=== PATIENT | male | born 1940 | race Caucasian/White ===

== ENCOUNTER 2017-02-21 21:54 | Observation (INO) | payer MEDICARE, OTHER ==
[~2017-02-21] VITALS: Ht 177.8 cm; Wt 105.5 kg
[~2017-02-21 21:54] MED LIST: ASPI325T PO; FENO1TAB76 PO; LOSA50TA PO; METO25 PO; MOBI7.5T PO; NEUR300C PO; NITR0.4S SL; ROSU10 PO
[2017-02-21 21:55] VITALS: BP 208/92; PULSE 82; RESP 16; TEMP 98.6; O2SAT 95
[2017-02-21] MEDS ORDERED: NITROGLYCERIN 2% OINT 1 GM PACKET TOP ONE ×2 (22:30→23:00)
[2017-02-21] MEDS ORDERED: MORPHINE SULFATE 2 MG/ML INJ IV PUSH ONE (22:30)
--- NOTE | 2017-02-21 22:32 | PD ---
HPI Chief Complaint: Chest Pain Time Seen by Provider: 22:09 Travel History International Travel<30 days: No Contact w/Intl Traveler<30days: No Traveled to known affect area: No History of Present Illness HPI PATIENT COMPLAINTS OF CHEST TIGHTNESS, 6/10 NOW (WAS MUCH HIGHER 9/10 BEFORE HE TOOK NTG) INTERMITTENT OVER PAST 3 DAYS, SUBSTERNAL, RAD TO NECK, EPISODES LAST 30MIN OR SO AND ARE RELIEVED WITH NTG, PATIENT HAS BEEN USING HIS SL NTG OVER THE PAST 3 DAYS AND WAS ADVISED BY HIS FAMILY TO COME IN FOR FURTHER EVALUATION. PCP IN [facility], [facility] IN [address] SEARS ALL:PCN PMHX:TX 8 YRS AGO, 3 PREVIOUS STENTS, HTN, HYPERCHOL, COPD, PFSH Past Medical History Arthritis: Yes Heart Rhythm Problems: Yes Cardiac Catheterization: Yes (CATH X 2) Cardiovascular Problems: Yes High Cholesterol: Yes Chest Pain: Yes COPD: Yes Diminished Hearing: Yes (LEFT HEARING AID ) Hypertension: Yes Medical other: Yes (EARDRUM ) Musculoskeletal: Yes (ACHILLES TENDON ) Myocardial Infarction: Yes (TX 8 YEARS AGO ) Past Surgical History Cardiac Surgery: Yes Coronary Stent: Yes (STENTS X 3) Social History Alcohol Use: Yes (OCC) Tobacco Use: No (HX OF 1 PPD) Substance Use: No Allergies-Medications (Allergen,Severity, Reaction): Coded Allergies: penicillin G (Unverified Allergy, Unknown, 02/21/17) Reported Meds & Prescriptions Reported Meds & Active Scripts Active Reported Prednisone 20 Mg Tab 40 Mg PO DAILY Take 40 mg (2 tablets) daily for 5 days Hydrocortisone Topical (Hydrocortisone) 0.5% Oint 1 Applic TOPICAL QID Gmcagows-Hvjdgyqzm-BE Otic Drops (Neomycin/Polymyxin/Hydrocortisone) 1 % Soln 4 Drop EACH EAR QID Doxycycline Hyclate 100 Mg Cap 100 Mg PO BID Aspirin 325 Mg Tab 325 Mg PO DAILY Fenofibrate 145 Mg Tab 145 Mg PO DAILY Metoprolol Tartrate 50 Mg Tab 50 Mg PO BID Potassium Chloride ER (Potassium Chloride) 10 Meq Tab 10 Meq PO BID Losartan (Losartan Potassium) 50 Mg Tab 50 Mg PO DAILY Furosemide 20 Mg Tab 20 Mg PO BID Rosuvastatin (Rosuvastatin Calcium) 5 Mg Tab 5 Mg PO DAILY Review of Systems General / Constitutional: No: Fever Eyes: No: Visual changes HENT: No: Headaches Cardiovascular: Positive: Chest Pain or Discomfort Respiratory: No: Shortness of Breath Gastrointestinal: No: Abdominal Pain Genitourinary: No: Dysuria Musculoskeletal: No: Pain Skin: No Rash Neurologic: No: Weakness Psychiatric: No: Depression Endocrine: No: Polydipsia Hematologic/Lymphatic: No: Easy Bruising Physical Exam Narrative GENERAL: SKIN: Warm and dry. HEAD: Atraumatic. Normocephalic. EYES: Pupils equal and round. No scleral icterus. No injection or drainage. ENT: No nasal bleeding or discharge. Mucous membranes pink and moist. NECK: Trachea midline. No JVD. CARDIOVASCULAR: Regular rate and rhythm. RESPIRATORY: No accessory muscle use. Clear to auscultation. Breath sounds equal bilaterally. GASTROINTESTINAL: Abdomen soft, non-tender, nondistended. MUSCULOSKELETAL: Extremities without clubbing, cyanosis, or edema. No obvious deformities. NEUROLOGICAL: Awake and alert. No obvious cranial nerve deficits. Motor grossly within normal limits. Five out of 5 muscle strength in the arms and legs. Normal speech. PSYCHIATRIC: Appropriate mood and affect; insight and judgment normal. Data Data Last Documented VS Vital Signs Date Time Temp Pulse Resp B/P (MAP) Pulse Ox O2 Delivery O2 Flow Rate FiO2 02/21/17 23:09 99 Nasal Cannula 2.00 02/21/17 22:33 69 02/21/17 21:55 98.6 16 208/92 (130) Orders Orders Nitroglycerin 2% Oint (Nitroglycerin 2% (02/21/17 22:30) Morphine Inj (Morphine Inj) (02/21/17 22:30) Electrocardiogram (02/21/17 23:00) B-Type Natriuretic Peptide (02/21/17 23:00) Ckmb (Isoenzyme) Profile (02/21/17 23:00) Complete Blood Count With Diff (02/21/17 23:00) Comprehensive Metabolic Panel (02/21/17 23:00) Prothrombin Time / Inr (Pt) (02/21/17 23:00) Act Partial Throm Time (Ptt) (02/21/17 23:00) Troponin I (02/21/17 23:00) Lipase (02/21/17 23:00) Chest, Single Ap (02/21/17 23:00) Ecg Monitoring (02/21/17 23:00) Bilateral Bp Monitoring (02/21/17 23:00) Iv Access Insert/Monitor (02/21/17 23:00) Oximetry (02/21/17 23:00) Oxygen Administration (02/21/17 23:00) Nitroglycerin 2% Oint (Nitroglycerin 2% (02/21/17 23:00) Sodium Chloride 0.9% Flush (Ns Flush) (02/21/17 23:00) Labs Laboratory Tests Test 02/21/17 23:05 White Blood Count 11.4 TH/MM3 Red Blood Count 4.80 MIL/MM3 Hemoglobin 13.3 GM/DL Hematocrit 41.3 % Mean Corpuscular Volume 86.0 FL Mean Corpuscular Hemoglobin 27.6 PG Mean Corpuscular Hemoglobin Concent 32.1 % Red Cell Distribution Width 16.1 % Platelet Count 184 TH/MM3 Mean Platelet Volume 9.5 FL Neutrophils (%) (Auto) 75.4 % Lymphocytes (%) (Auto) 16.5 % Monocytes (%) (Auto) 7.3 % Eosinophils (%) (Auto) 0.1 % Basophils (%) (Auto) 0.7 % Neutrophils # (Auto) 8.6 TH/MM3 Lymphocytes # (Auto) 1.9 TH/MM3 Monocytes # (Auto) 0.8 TH/MM3 Eosinophils # (Auto) 0.0 TH/MM3 Basophils # (Auto) 0.1 TH/MM3 CBC Comment DIFF FINAL Differential Comment Prothrombin Time 10.6 SEC Prothromb Time International Ratio 1.0 RATIO Activated Partial Thromboplast Time 22.4 SEC Blood Urea Nitrogen 29 MG/DL Creatinine 1.12 MG/DL Random Glucose 122 MG/DL Total Protein 6.9 GM/DL Albumin 3.9 GM/DL Calcium Level 9.0 MG/DL Alkaline Phosphatase 59 U/L Aspartate Amino Transf (AST/SGOT) 15 U/L Alanine Aminotransferase (ALT/SGPT) 31 U/L Total Bilirubin 0.3 MG/DL Sodium Level 142 MEQ/L Potassium Level 4.6 MEQ/L Chloride Level 109 MEQ/L Carbon Dioxide Level 28.6 MEQ/L Anion Gap 4 MEQ/L Estimat Glomerular Filtration Rate 64 ML/MIN Total Creatine Kinase 50 U/L Troponin I LESS THAN 0.02 NG/ML B-Type Natriuretic Peptide 37 PG/ML Lipase 108 U/L MDM Medical Decision Making Medical Screen Exam Complete: Yes Emergency Medical Condition: Yes Medical Record Reviewed: Yes Interpretation(s) EKG:NSR 68, INCOMPLETE RSR, NO STEMI PATTERN Differential Diagnosis STEMI V NONSTEMI V PNA V PTX Narrative Course EKG NO STEMI PATTERN, HOWEVER PATIENT HAS RISK FACTORS OF PREVIOUS NONSTEMI, HTN , HYPERLIPIDEMIA WELL SO I BELIEVE IT PRUDENT TO R/O NONSTEMI...CURRENTLY AT 0100 PATIENT IS PAIN FREE, COMFORTABLE AND AWARE OF DISPO PLAN Diagnosis Primary Impression: CHEST PAIN R/O TX Phil Pickens MD Feb 21, 2017 22:31
[2017-02-21] MEDS ORDERED: METO50TA PO (22:58)
[2017-02-21] MEDS ORDERED: FENO145T2 PO (22:58)
[2017-02-21] MEDS ORDERED: CORTI10A EACH EAR (22:58)
[2017-02-21] MEDS ORDERED: PRED20 PO (22:58)
[2017-02-21] MEDS ORDERED: FURO20TA PO (22:58)
[2017-02-21] MEDS ORDERED: POTA10TA2 PO (22:58)
[2017-02-21] MEDS ORDERED: LOSA50TA PO (22:58)
[2017-02-21] MEDS ORDERED: HYDR.5%T TOPICAL (22:58)
[2017-02-21] MEDS ORDERED: ASPI-183 PO (22:58)
[2017-02-21] MEDS ORDERED: DOXY100C PO (22:58)
[2017-02-21] MEDS ORDERED: ROSU1TAB4 PO (22:58)
[2017-02-21] MEDS ORDERED: SODIUM CHLORIDE 0.9% FLUSH 10 ML FLUSH IVF PRN (23:00)
--- NOTE | 2017-02-21 23:33 | RADRPT ---
EXAM DATE/TIME: 02/21/2017 23:24 [facility] COMPARISON: CHEST PA & LAT, December 24, 2014, 16:51. INDICATIONS : Upper chest lower anterior neck pain. MEDICAL HISTORY : Myocardial infarction. Chronic obstructive pulmonary disease. SURGICAL HISTORY : None. ENCOUNTER: Initial ACUITY: 1 day PAIN SCORE: 3/10 LOCATION: Bilateral chest neck FINDINGS: A single view of the chest demonstrates the lungs to be symmetrically aerated without evidence of mas s, infiltrate or effusion. The cardiomediastinal contours are unremarkable. Osseous structures are intact. CONCLUSION: No evidence of acute cardiopulmonary disease. Jaziel Pennington MD on February 21, 2017 at 23:32 Board Certified Radiologist. This report was verified electronically.
[2017-02-21 23:43] LABS: AUTOMATED NEUTROPHIL # 8.6 TH/MM3 (1.8-7.7); BASOPHIL # 0.1 TH/MM3 (0-0.2); BASOPHIL % 0.7 % (0.0-2.0); EOSINOPHIL % 0.1 % (0.0-4.0); HEMATOCRIT 41.3 % (39.0-51.0); HEMO FLAGS DIFF FINAL; LYMPH % 16.5 % (9.0-44.0); LYMPHOCYTE # 1.9 TH/MM3 (1.0-4.8); MEAN CORPUSCULAR HEMOGLOBIN 27.6 PG (27.0-34.0); MEAN CORPUSCULAR HGB CONC 32.1 % (32.0-36.0); MONO % 7.3 % (0.0-8.0); NEUT % 75.4 % (16.0-70.0); PLATELET COUNT 184 TH/MM3 (150-450); RED CELL DISTRIBUTION WIDTH 16.1 % (11.6-17.2); WHITE BLOOD COUNT 11.4 TH/MM3 (4.0-11.0)
[2017-02-21 23:56] LABS: APTT (PATIENT) 22.4 SEC (24.3-30.1); PROTHROMBIN TIME - PATIENT 10.6 SEC (9.8-11.6)
[2017-02-22 00:06] LABS: ANION GAP 4 MEQ/L (5-15); AST (GOT) 15 U/L (15-37); BICARBONATE 28.6 MEQ/L (21.0-32.0); BLOOD UREA NITROGEN 29 MG/DL (7-18); CHLORIDE 109 MEQ/L (98-107); GLOMERULAR FILTRATION RATE 64 ML/MIN (>89); POTASSIUM 4.6 MEQ/L (3.5-5.1); SODIUM (NA) 142 MEQ/L (136-145)
[2017-02-22 00:11] LABS: ALKALINE PHOSPHATASE 59 U/L (45-117); ALT (GPT) 31 U/L (12-78); TOTAL BILIRUBIN ADULT 0.3 MG/DL (0.2-1.0)
[2017-02-22 00:14] LABS: CREATINE KINASE 50 U/L (39-308)
[2017-02-22] MEDS ORDERED: SODIUM CHLORIDE 0.9% FLUSH 10 ML FLUSH IV FLUSH PRN (01:15)
[2017-02-22 01:50] VITALS: O2SAT 98
[2017-02-22 03:30] LABS: CREATINE KINASE 38 U/L (39-308)
[2017-02-22 04:16] VITALS: BP 159/73; PULSE 62; RESP 24; TEMP 97.7; O2SAT 98
[2017-02-22 05:00] LABS: CREATINE KINASE 37 U/L (39-308)
[2017-02-22 08:00] VITALS: BP 146/75; PULSE 63; RESP 20; TEMP 98.2; O2SAT 96
[2017-02-22] MEDS ORDERED: NITROGLYCERIN 0.4 MG SL 25 TABS/BTL SL PRN (08:00)
[2017-02-22] MEDS ORDERED: ACETAMINOPHEN 500 MG CPLT PO PRN (08:00)
[2017-02-22] MEDS ORDERED: ONDANSETRON HCL 4 MG/2 ML VIAL IV PUSH PRN (08:00)
[2017-02-22 08:15] VITALS: PULSE 61
[2017-02-22] MEDS ORDERED: SODIUM CHLORIDE 0.9% FLUSH 10 ML FLUSH IV FLUSH SCH (09:00)
[2017-02-22] MEDS ORDERED: ASPIRIN 325 MG TAB PO SCH (09:00)
--- NOTE | 2017-02-22 09:22 | HHI.HP ---
HPI Primary Care Physician PCP in [place], [place] Chief Complaint Chest pain History of Present Illness 76-year-old male with known history of coronary artery disease, hyperlipidemia, and cardiac stents presents to emergency room for further evaluation of his "angina pain." Onset 2 days ago. Location anterior neck. Characterized as tightness. Severity mild. No radiation. Duration 30-60 minutes. Associated symptoms of dyspnea. No associated symptoms of N, V, or diaphoresis. Precipitating factors activity, reporting 5 episodes past 2 days. Relieving factors rest, discomfort gradually improves after 30-60 minutes. Endorses similar pain in the past prior to previously cardiac stent placement. Took x1 nitro sublingual tablet yesterday with mild relief of symptoms after 15 minutes. Endorses nitro is an old prescription. Also reports discomfort similar to ingestion generally relieved with Tums. Took Tums during these discomfort without relief. Review of Systems General: No fatigue,weakness, fever, chills, or recent illness change in appetite. HEENT: No ZARCO, no vision changes, no nasal congestion or drainage, no dysphasia. Currently being treated for perforated ear drum with antibiotics, steroids, and ear drops. CV: As stated above. Currently chest pain free. RESP: No SOB, cough, wheeze GI: No nausea, vomiting, bowel changes, diarrhea, constipation, pain, distention. No change in appetite, no unintentional weight gain or weight loss. : No dysuria, urgency, frequency EXT: Dependent bilateral lower leg edema MS: No discomfort or change in ROM NEURO: No dizziness, difficulty with balance, LOC, motor/sensory deficits PSYCH: No anxiety, depression SKIN: No rashes, no concerning lesions Past Family Social History Allergies: Coded Allergies: penicillin G (Unverified Allergy, Unknown, 02/21/17) Past Medical History CAD, cardiac stent, hyperlipidemia, COPD Past Surgical History c5-c6 fusion Reported Medications Reported Meds & Active Scripts Active Reported Prednisone 20 Mg Tab 40 Mg PO DAILY Take 40 mg (2 tablets) daily for 5 days Hydrocortisone Topical (Hydrocortisone) 0.5% Oint 1 Applic TOPICAL QID Capsxhmz-Gnunvtytx-RC Otic Drops (Neomycin/Polymyxin/Hydrocortisone) 1 % Soln 4 Drop EACH EAR QID Doxycycline Hyclate 100 Mg Cap 100 Mg PO BID Aspirin 325 Mg Tab 325 Mg PO DAILY Fenofibrate 145 Mg Tab 145 Mg PO DAILY Metoprolol Tartrate 50 Mg Tab 50 Mg PO BID Potassium Chloride ER (Potassium Chloride) 10 Meq Tab 10 Meq PO BID Losartan (Losartan Potassium) 50 Mg Tab 50 Mg PO DAILY Furosemide 20 Mg Tab 20 Mg PO BID Rosuvastatin (Rosuvastatin Calcium) 5 Mg Tab 5 Mg PO DAILY Active Ordered Medications Current Medications Medications (Trade) Dose Ordered Sig/Ralph Route Start Time Stop Time Status Last Admin (NS Flush) 2 ml UNSCH PRN IV FLUSH 02/22/17 01:15 (NS Flush) 2 ml BID IV FLUSH 02/22/17 09:00 02/22/17 09:10 (Tylenol) 500 mg Q4H PRN PO 02/22/17 08:00 (Zofran Inj) 4 mg Q6H PRN IV PUSH 02/22/17 08:00 (Nitrostat Sl) 0.4 mg Q5M PRN SL 02/22/17 08:00 (Aspirin) 325 mg DAILY PO 02/22/17 09:00 02/22/17 09:09 Social History Known coronary artery disease and hyperlipidemia. No known diabetes or hypertension. Past cardiac testing No recent cardiac testing. No cardiac testing after most recent catheterization completed here in 2014. Patients institutional research director is Dr. Lozano, in [place]. [place] 12/25/2014 [facility], Cardiac catheterization (Dr. Castro) Coronary angiography- The main coronary artery is patent. LAD has 30% stenosis in the proximal portion and 50% stenosis in the distal portion. D1 is patent. Rhombus intermedius is a large vessel which is patent. The circumflex artery is patent. OM-1 has 60% in the proximal portion, OM-2 is patent, PDA patent. The right coronary artery has 20% in-stent stenosis in the proximal midportion, and 60% stenosis in the distal portion. PDA small patent, by mouth feet pain. Diagnosis 1. Moderate multivessel coronary artery disease with patent stent in the right coronary artery. 2. Mild left ventricular dysfunction consistent with ischemic cardiomyopathy. Physical Exam Vital Signs Vital Signs Date Time Temp Pulse Resp B/P (MAP) Pulse Ox O2 Delivery O2 Flow Rate FiO2 02/22/17 08:15 61 02/22/17 08:00 98.2 63 20 146/75 (98) 96 02/22/17 04:16 97.7 62 24 159/73 (101) 98 02/22/17 01:50 98 Nasal Cannula 2.00 02/21/17 23:09 99 Nasal Cannula 2.00 02/21/17 22:33 69 98 Room Air 02/21/17 21:55 98.6 82 16 208/92 (130) 95 Room Air Physical Exam GENERAL: Alert WN, WD, NAD, pleasant, elderly male HEAD: NC, AT NECK: Supple, no masses, trachea midline CV: RRR, without murmur, rub, gallop, no JVD, S1-S2 no S3-S4. RESP: Clear lungs throughout bilateral, slight rales bases. No wheeze or rhonchi. symmetrical chest rise, nonlabored, able to speak in full sentences ABD: Soft, NT, ND, no masses, positive bowel tones, obese EXT: Pulses +24, no dependent edema MS: Normal tone 4 extremities, nontender, no obvious deformities, full range of motion NEURO: CN II through CN XII grossly intact, motor strength 5/5, gait WNL PSYCH: A+O 3, pleasant affect, appropriate speech, appropriate mood and affect , insight and judgment SKIN: Normal turgor, normal texture, no lesions, no rashes, brisk cap refill, even hair distribution, solar damage, multiple seborrheic keratoses back, chest , bilateral arms. Laboratory Laboratory Tests Test 02/21/17 23:05 02/22/17 02:25 02/22/17 04:00 White Blood Count 11.4 Red Blood Count 4.80 Hemoglobin 13.3 Hematocrit 41.3 Mean Corpuscular Volume 86.0 Mean Corpuscular Hemoglobin 27.6 Mean Corpuscular Hemoglobin Concent 32.1 Red Cell Distribution Width 16.1 Platelet Count 184 Mean Platelet Volume 9.5 Neutrophils (%) (Auto) 75.4 Lymphocytes (%) (Auto) 16.5 Monocytes (%) (Auto) 7.3 Eosinophils (%) (Auto) 0.1 Basophils (%) (Auto) 0.7 Neutrophils # (Auto) 8.6 Lymphocytes # (Auto) 1.9 Monocytes # (Auto) 0.8 Eosinophils # (Auto) 0.0 Basophils # (Auto) 0.1 CBC Comment DIFF FINAL Differential Comment Prothrombin Time 10.6 Prothromb Time International Ratio 1.0 Activated Partial Thromboplast Time 22.4 Blood Urea Nitrogen 29 Creatinine 1.12 Random Glucose 122 Total Protein 6.9 Albumin 3.9 Calcium Level 9.0 Alkaline Phosphatase 59 Aspartate Amino Transf (AST/SGOT) 15 Alanine Aminotransferase (ALT/SGPT) 31 Total Bilirubin 0.3 Sodium Level 142 Potassium Level 4.6 Chloride Level 109 Carbon Dioxide Level 28.6 Anion Gap 4 Estimat Glomerular Filtration Rate 64 Total Creatine Kinase 50 38 37 Troponin I LESS THAN 0.02 LESS THAN 0.02 LESS THAN 0.02 B-Type Natriuretic Peptide 37 Lipase 108 Result Diagram: 02/21/17230402/21/172304 Imaging Last Impressions Myocardial Perfusion Scan Nuc Med 02/22/17 0000 Signed Impressions: Service Date/Time: Wednesday, February 22, 2017 11:15 - CONCLUSION: Normal examination. RISK CATEGORY: Low (<1%% Annual Mortality Rate) Ezio Cooley MD Chest X-Ray 02/21/172299 Signed Impressions: Service Date/Time: Tuesday, February 21, 2017 23:24 - CONCLUSION: No evidence of acute cardiopulmonary disease. Jaziel Pennington MD Course EKG Normal sinus rhythm, Q waves inferiorly, no ST changes, PVCs Caprini VTE Risk Assessment Caprini VTE Risk Assessment: Mod/High Risk (score >= 2) Caprini Risk Assessment Model Point Value = 1 Point Value = 2 Point Value = 3 Point Value = 5 Age 41-60 Minor surgery BMI > 25 kg/m2 Swollen legs Varicose veins or History of unexplained or recurrent spontaneous Oral contraceptives or hormone replacement Sepsis (< 1 month) Serious lung disease, including pneumonia (< 1 month) Abnormal pulmonary function Acute myocardial infarction Congestive heart failure (< 1 month) History of inflammatory bowel disease Medical patient at bed rest Age 61-74 Arthroscopic surgery Major open surgery (> 45 min) Laparoscopic surgery (> 45 min) Malignancy Confined to bed (> 72 hours) Immobilizing plaster cast Central venous access Age >= 75 History of VTE Family history of VTE Factor V Leiden Prothrombin [id number] Lupus anticoagulant Anticardiolipin antibodies Elevated serum homocysteine Heparin-induced thrombocytopenia Other congenital or acquired thrombophilia Stroke (< 1 month) Elective arthroplasty Hip, pelvis, or leg fracture Acute spinal cord injury (< 1 month) Prophylaxis Regimen Total Risk Factor Score Risk Level Prophylaxis Regimen 0-1 Low Early ambulation 2 Moderate Order ONE of the following: *Sequential Compression Device (SCD) *Heparin 5000 units SQ BID 3-4 Higher Order ONE of the following medications: *Heparin 5000 units SQ TID *Enoxaparin/Lovenox 40 mg SQ daily (WT < 150 kg, CrCl > 30 mL/min) *Enoxaparin/Lovenox 30 mg SQ daily (WT < 150 kg, CrCl > 10-29 mL/min) *Enoxaparin/Lovenox 30 mg SQ BID (WT < 150 kg, CrCl > 30 mL/min) AND/OR *Sequential Compression Device (SCD) 5 or more Highest Order ONE of the following medications: *Heparin 5000 units SQ TID (Preferred with Epidurals) *Enoxaparin/Lovenox 40 mg SQ daily (WT < 150 kg, CrCl > 30 mL/min) *Enoxaparin/Lovenox 30 mg SQ daily (WT < 150 kg, CrCl > 10-29 mL/min) *Enoxaparin/Lovenox 30 mg SQ BID (WT < 150 kg, CrCl > 30 mL/min) AND *Sequential Compression Device (SCD) Assessment and Plan Assessment and Plan #1 Chest pain-admitted chest pain center. Ruled out with 3 sets of EKGs, cardiac enzymes, and monitored overnight. Seen and evaluated by Dr. Dykes. There is concern of ischemia with patient story, therefore will proceed with chemical stress test. If cardiac testing unremarkable, will discharge with instructions for notify and follow up with his institutional research director next week. Patient agreeable to plan of care and verbalizes understanding. #2 History of CAD-continue aspirin, rosuvastatin, Fenofibrate, Metoprolol, and losartan Moriah Almanza Feb 22, 2017 09:22
[2017-02-22] MEDS ORDERED: predniSONE 20 MG TAB PO SCH (09:30)
[2017-02-22] MEDS ORDERED: METOPROLOL TARTRATE 50 MG TAB PO SCH (09:30)
[2017-02-22] MEDS ORDERED: LOSARTAN 50 MG TAB PO SCH (09:30)
[2017-02-22] MEDS ORDERED: DOXYCYCLINE HYCLATE 100 MG CAP PO SCH (09:30)
[2017-02-22] MEDS ORDERED: ATORVASTATIN 10 MG TAB PO SCH (09:45)
--- NOTE | 2017-02-22 10:34 | EKG ---
Date Performed: 02/22/2017 Time Performed: 04:49:54 PTAGE: 76 years EKG: Sinus rhythm WITH OCCASIONAL VENTRICULAR PREMATURE COMPLEXES POSSIBLE RIGHT VENTRICULAR CONDUCTION DELAY INFERIOR MYOCARDIAL INFARCTION ABNORMAL ECG PREVIOUS TRACING : 02/22/2017 02.56 No significant change from previous tracing noted. DOCTOR: Joaquín Henderson Interpretating Date/Time 02/22/2017 10:32:41
--- NOTE | 2017-02-22 10:37 | EKG ---
Date Performed: 02/22/2017 Time Performed: 02:56:25 PTAGE: 76 years EKG: SINUS BRADYCARDIA WITH OCCASIONAL VENTRICULAR PREMATURE COMPLEXES POSSIBLE RIGHT VENTRICULA R CONDUCTION DELAY INFERIOR MYOCARDIAL INFARCTION ABNORMAL ECG PREVIOUS TRACING : 12/25/2014 06.29 No significant change from previous tracing noted. DOCTOR: Joaquín Henderson Interpretating Date/Time 02/22/2017 10:36:57
--- NOTE | 2017-02-22 10:50 | EKG ---
Date Performed: 02/21/2017 Time Performed: 22:20:52 PTAGE: 76 years EKG: Sinus rhythm LOW QRS VOLTAGE IN PRECORDIAL LEADS POSSIBLE RIGHT VENTRICULAR CONDUCTION DELAY INFERIOR MYOCARDIAL INFARCTION ABNORMAL ECG NO PREVIOUS TRACING DOCTOR: Joaquín Henderson Interpretating Date/Time 02/22/2017 10:49:39
[2017-02-22] MEDS ORDERED: REGADENOSON INJ 0.4 MG/5 ML SYR ONE (11:22)
--- NOTE | 2017-02-22 12:46 | RADRPT ---
EXAM DATE/TIME: 02/22/2017 11:15 [facility] COMPARISON: No previous studies available for comparison. INDICATIONS : Substernal chest pain radiating to left armh with dypsnea. Angina. DOSE: 35 mCi Tc99m Myoview at stress. 11 mCi Tc99m Myoview at rest. 0.4 mg Lexiscan STRESS SYMPTOMS: Dyspnea. EJECTION FRACTION: 50% MEDICAL HISTORY : Hypertension. Chronic obstructive pulmonary disease. SURGICAL HISTORY : Coronary artery stent. ENCOUNTER: Initial ACUITY: 1 day PAIN SCALE: 6/10 LOCATION: Substernal chest TECHNIQUE: The patient underwent pharmacologic stress with infusion of prescribed dose. Continuous ECG tracing was monitored during stress. Gated SPECT imaging was performed after stress and conventional SPECT i maging was performed at rest. The examination was performed on a SPECT/CT scanner, both attenuation and non-corrected datasets were reviewed. FINDINGS: DISTRIBUTION: The maximum perfused segment at stress is in the mid anterolateral wall. PERFUSION STUDY: The pattern of perfusion at stress is within normal limits. GATED STUDY: There is intact wall motion and thickening without hypokinetic or dyskinetic segments. CONCLUSION: Normal examination. RISK CATEGORY: Low (<1% Annual Mortality Rate) Ezio Cooley MD on February 22, 2017 at 12:43 Board Certified Radiologist. This report was verified electronically.
[2017-02-22] MEDS: NEOMYCIN/POLYMYXIN/HYDROCORT OTIC SOLN 10 ML BTL EACH EAR SCH ×2 (12:55→12:56)
[2017-02-22] MEDS ORDERED: NITR1SUB3 SL (13:20)
--- NOTE | 2017-02-22 13:22 | HHI.DCPOC ---
Discharge Care Plan Diagnosis: (1) History of heart artery stent (2) Hx of coronary artery disease (3) Chest pain of unknown etiology Goals to Promote Your Health * To prevent worsening of your condition and complications * To maintain your health at the optimal level Directions to Meet Your Goals Take your medications as prescribed Follow your dietary instruction Follow activity as directed Keep your appointments as scheduled Take your immunizations and boosters as scheduled If your symptoms worsen call your PCP, if no PCP go to Urgent Care Center or Emergency Room Smoking is Dangerous to Your Health. Avoid second hand smoke Call the 24-hour hour crisis hotline for domestic abuse at Moriah Almanza Feb 22, 2017 13:22
[2017-02-22 13:30] VITALS: BP 172/79; PULSE 58; RESP 20; TEMP 97.7; O2SAT 97
[2017-02-22 13:40] VITALS: PULSE 78
[2017-02-22] MEDS ORDERED: FUROSEMIDE 20 MG TAB PO SCH (21:00)
[2017-02-22] MEDS ORDERED: POTASSIUM CHLORIDE 10 MEQ CONTROLLED RELEASE TAB PO SCH (21:00)
[2017-02-23] MEDS ORDERED: FENOFIBRATE 145 MG TAB PO SCH (09:00)
--- NOTE | 2017-02-24 08:00 | TR ---
Date Performed: 02/22/2017 Time Performed: 11:32:42 DOCTOR: Rosa Fisher DRUG LIST: CLINICAL HISTORY: CHEST PAIN REASON FOR TEST: CHEST PAIN REASON FOR ENDING: OBSERVATION: CONCLUSION: Lexiscan stress test was performed under standard four minute protocol. Radionuclid e was injected one minute prior to ending the test. No electrocardiographic abormalities were present to suggest ischemia. Nuclear imaging and interpretation are pending. COMMENTS:
== END 2017-02-22 15:53 | disposition home or self-care (01) ==
LOC: NEPC 21:54 → NEDA 02-22 01:07 → NEPHCDU 02-22 02:24
PROVIDERS: ADMIT Internal Medicine Interventional Cardiology; ATTEND Internal Medicine Interventional Cardiology
DX: R07.89 Other chest pain (principal); I25.10 Atherosclerotic heart disease of native coronary artery without angina pectoris; I25.5 Ischemic cardiomyopathy; I10 Essential (primary) hypertension; E78.5 Hyperlipidemia, unspecified; J44.9 Chronic obstructive pulmonary disease, unspecified; R94.31 Abnormal electrocardiogram [ECG] [EKG]; I25.2 Old myocardial infarction; Z95.5 Presence of coronary angioplasty implant and graft
CPT/HCPCS: 71010; 78452; 80053; 82550; 83690; 83880; 84484; 85025; 85610; 85730; 93005; 93017; 96374; 99285; A9502; G0378; J2270; J2785; J7512

== ENCOUNTER 2018-01-16 12:07 | Inpatient (IN) ==
[2018-01-16 12:18] VITALS: RESP 18
[2018-01-16 12:35] LABS: Baso # (Auto) 0.1 th/mm3 (0.0-0.2); Eos # (Auto) 0.3 th/mm3 (0.0-0.4); Eos % (Auto) 4.6 % (0.0-4.0); Hematocrit 39.3 % (39.0-51.0); Hemoglobin 12.5 gm/dL (13.0-17.0); Lymph # (Auto) 1.9 th/mm3 (1.0-4.8); Lymph % (Auto) 27.1 % (9.0-44.0); Mean Corpuscular HGB Conc 31.9 % (32.0-36.0); Mean Corpuscular Hemoglobin 26.9 pg (27.0-34.0); Mean Corpuscular Volume 84.3 fL (80.0-100.0); Mean Platelet Volume 9.1 fL (7.0-11.0); Mono # (Auto) 0.6 th/mm3 (0.0-0.9); Mono % (Auto) 8.1 % (0.0-8.0); Neut # (Auto) 4.2 th/mm3 (1.8-7.7); Neut % (Auto) 59.2 % (16.0-70.0); Platelet Count 144 th/mm3 (150-450); Red Blood Count 4.67 mil/mm3 (4.50-5.90); Red Cell Distribution Width 19.1 % (11.6-17.2)
--- NOTE | 2018-01-16 12:35 | ED ---
HPI General Chief Complaint: Chest Pain Stated Complaint: Cardiac/Emergent Time Seen by Provider: 01/16/18 12:14 Source: patient Mode of arrival: EMS Limitations: no limitations History of Present Illness HPI narrative: 77 y/o male was at home when he developed tightness to his neck. He took 2 nitroglycerin. The ambulance team arrived he was bradycardic and hypotensive. His heart rate was 42 and his systolic was 70s. Here his blood pressure has improved and his heart rate is 50. His chest pain has resolved. He states that back in May or so he had bypass surgery where they fixed 2 of the 3 vessels but could not fix the last one at [facility] where he receives his care that his daughter helps him coordinate as she works out there. He denies any other concurrent complaints. Quality was pressure. Severity is resolved. Related Data Home Medications Medication Instructions Recorded Confirmed apixaban [Eliquis] 5 mg PO BID 10/28/17 10/28/17 hydralazine 25 mg PO BID 10/28/17 10/28/17 isosorbide mononitrate 30 mg PO DAILY 10/28/17 10/28/17 losartan 50 mg PO DAILY 10/28/17 10/28/17 ranitidine HCl 150 mg PO BID 10/28/17 10/28/17 rosuvastatin [Crestor] 10 mg PO DAILY 10/28/17 10/28/17 Previous Rx's Medication Instructions Recorded docusate sodium [Colace] 100 mg PO DAILY PRN #20 cap 10/28/17 Allergies Allergy/AdvReac Type Severity Reaction Status Date / Time penicillin G Allergy Unknown Anaphylaxis Unverified 10/28/17 18:05 Review of Systems ROS: all other systems reviewed are negative [facility] Medical History Medical History Myocardial infarction (Acute) Surgical History Surgical History History of cardiac cath (Acute) History of fusion of cervical spine (Acute) History of open heart surgery (Acute) Social History Social History Substance History: No History of Abuse Second Hand Smoke Exposure: Yes Smoking Status: Former smoker Tobacco Type: Cigarettes How Often Do You Have a Drink Containing Alcohol: 2 to 4 times a month Recent Travel in [facility] within the Last 8 Weeks: No Recent Out of Country Travel within the Last 8 Weeks: No Immunization History Tetanus Immunization: Unsure Exam Narrative Exam Narrative: GENERAL: 77 y/o male in no apparent distresss SKIN: Focused skin assessment warm/dry. HEAD: Atraumatic. Normocephalic. EYES: Pupils equal and round. No scleral icterus. No injection or drainage. ENT: No nasal bleeding or discharge. Mucous membranes pink and moist. NECK: Trachea midline. CARDIOVASCULAR: Bradycardic rate and regular rhythm. No murmur appreciated. RESPIRATORY: No accessory muscle use. Clear to auscultation. Breath sounds equal bilaterally. GASTROINTESTINAL: Abdomen soft, non-tender, nondistended. MUSCULOSKELETAL: No obvious deformities. No clubbing. No cyanosis. NEUROLOGICAL: Awake and alert. Motor grossly within normal limits. Normal speech. PSYCHIATRIC: Appropriate mood and affect; insight and judgment normal. Course Reevaluation(s) Reevaluation #1: Patient still pain-free. Patient bradycardic but blood pressure stable. Will discuss with on-call cardiology and patient agrees to admission here. Family updated at bedside. Consultations Consultation #1: Dr. Henderson states patient can eat, hold Eliquis, no heparin for now Consultation #2: dr han agrees to full admit Initial Documented Vital Signs Pulse Rate 51 L 01/16/18 12:13 Respiratory Rate 18 01/16/18 12:13 Blood Pressure 132/58 L 01/16/18 12:13 Pulse Oximetry 96 01/16/18 12:13 Last Documented Vital Signs Pulse Rate 59 L 01/16/18 14:09 Respiratory Rate 18 01/16/18 14:09 Blood Pressure 177/77 H 01/16/18 14:09 Pulse Oximetry 99 01/16/18 14:09 Medical Decision Making MDM Narrative Medical decision making narrative: Will check blood work, imaging and dose with aspirin and reevaluate. Currently pain-free and blood pressure improved. Heart rate stable Medical Screen Exam Complete: Yes Emergency Medical Condition: Yes Differential Diagnosis Differential Diagnosis: [place], gastritis, electrolyte, bradycardia Lab Data Lab results reviewed: Yes I reviewed the patient's lab results. Result diagrams: 01/16/18 12:23 01/16/18 12:23 Lab Results 01/16/18 01/16/18 01/16/18 Range/Units 12:23 12:23 12:23 WBC 7.0 (4.0-11.0) th/mm3 RBC 4.67 (4.50-5.90) mil/mm3 Hgb 12.5 L (13.0-17.0) gm/dL Hct 39.3 (39.0-51.0) % MCV 84.3 (80.0-100.0) fL MCH 26.9 L (27.0-34.0) pg MCHC 31.9 L (32.0-36.0) % RDW 19.1 H (11.6-17.2) % Plt Count 144 L (150-450) th/mm3 MPV 9.1 (7.0-11.0) fL Neut % (Auto) 59.2 (16.0-70.0) % Lymph % (Auto) 27.1 (9.0-44.0) % [place] % (Auto) 8.1 H (0.0-8.0) % Eos % (Auto) 4.6 H (0.0-4.0) % Baso % (Auto) 1.0 (0.0-2.0) % Neut # (Auto) 4.2 (1.8-7.7) th/mm3 Lymph # (Auto) 1.9 (1.0-4.8) th/mm3 [place] # (Auto) 0.6 (0.0-0.9) th/mm3 Eos # (Auto) 0.3 (0.0-0.4) th/mm3 Baso # (Auto) 0.1 (0.0-0.2) th/mm3 WBC Differential . Differential Comment Auto diff final PT 11.0 (9.8-11.6) sec INR 1.1 Ratio APTT 22.2 L (23.4-31.7) sec Sodium 142 (136-145) meq/L Potassium 4.9 (3.5-5.1) meq/L Chloride 110 H (98-107) meq/L Carbon Dioxide 24.0 (21.0-32.0) meq/L Anion Gap 8 (5-15) meq/L BUN 24 H (7-18) mg/dL Creatinine 1.46 H (0.60-1.30) mg/dL Estimated GFR 47 L (>89) mL/min Random Glucose 121 H (74-106) mg/dL Calcium 9.1 (8.5-10.1) mg/dL Magnesium 1.8 (1.5-2.5) mg/dL Total Bilirubin 0.6 (0.2-1.0) mg/dL AST 13 L (15-37) U/L ALT 17 (12-78) U/L Alkaline Phosphatase 32 L (45-117) U/L Total Creatine Kinase 45 (39-308) U/L Troponin I Less than 0.02 L (0.02-0.05) ng/mL B-Natriuretic Peptide (0-100) pg/mL Total Protein 6.6 (6.4-8.2) g/dL Albumin 3.6 (3.4-5.0) g/dL 01/16/18 Range/Units 12:23 WBC (4.0-11.0) th/mm3 RBC (4.50-5.90) mil/mm3 Hgb (13.0-17.0) gm/dL Hct (39.0-51.0) % MCV (80.0-100.0) fL MCH (27.0-34.0) pg MCHC (32.0-36.0) % RDW (11.6-17.2) % Plt Count (150-450) th/mm3 MPV (7.0-11.0) fL Neut % (Auto) (16.0-70.0) % Lymph % (Auto) (9.0-44.0) % [place] % (Auto) (0.0-8.0) % Eos % (Auto) (0.0-4.0) % Baso % (Auto) (0.0-2.0) % Neut # (Auto) (1.8-7.7) th/mm3 Lymph # (Auto) (1.0-4.8) th/mm3 [place] # (Auto) (0.0-0.9) th/mm3 Eos # (Auto) (0.0-0.4) th/mm3 Baso # (Auto) (0.0-0.2) th/mm3 WBC Differential Differential Comment PT (9.8-11.6) sec INR Ratio APTT (23.4-31.7) sec Sodium (136-145) meq/L Potassium (3.5-5.1) meq/L Chloride (98-107) meq/L Carbon Dioxide (21.0-32.0) meq/L Anion Gap (5-15) meq/L BUN (7-18) mg/dL Creatinine (0.60-1.30) mg/dL Estimated GFR (>89) mL/min Random Glucose (74-106) mg/dL Calcium (8.5-10.1) mg/dL Magnesium (1.5-2.5) mg/dL Total Bilirubin (0.2-1.0) mg/dL AST (15-37) U/L ALT (12-78) U/L Alkaline Phosphatase (45-117) U/L Total Creatine Kinase (39-308) U/L Troponin I (0.02-0.05) ng/mL B-Natriuretic Peptide 127 H (0-100) pg/mL Total Protein (6.4-8.2) g/dL Albumin (3.4-5.0) g/dL Imaging Data Attestation: I personally reviewed and interpreted this imaging study as follows : Radiologist's impression: Chest X-Ray 01/16/18 12:14 CONCLUSION: No acute cardiopulmonary disease demonstrated. Venous Doppler Study 01/16/18 13:04 CONCLUSION: No venous thrombosis of the left lower extremity. Discharge Plan Discharge Disposition Patient Disposition: 30 Still Patient Discharge Details Diagnosis: Bradycardia, Unstable angina pectoris Physicians Team ED Provider: Miranda Coleman Attending Provider: Emery Han Other Providers: Joaquín Henderson Status ED Status: Admitted Patient
[2018-01-16 12:45] LABS: Activated Partial Thrombo Time 22.2 sec (23.4-31.7); INR 1.1 Ratio
[2018-01-16 12:54] LABS: Albumin 3.6 g/dL (3.4-5.0); Anion Gap 8 meq/L (5-15); Aspartate Aminotransferase 13 U/L (15-37); Blood Urea Nitrogen 24 mg/dL (7-18); Calcium 9.1 mg/dL (8.5-10.1); Chloride 110 meq/L (98-107); Glomerular Filtration Rate 47 mL/min (>89); Glucose,Random 121 mg/dL (74-106); Magnesium 1.8 mg/dL (1.5-2.5); Potassium 4.9 meq/L (3.5-5.1); Sodium 142 meq/L (136-145)
[2018-01-16 12:55] LABS: Alanine Aminotransferase 17 U/L (12-78)
[2018-01-16 12:59] LABS: Alkaline Phosphatase 32 U/L (45-117); Total Protein 6.6 g/dL (6.4-8.2)
--- NOTE | 2018-01-16 13:04 | XR ---
EXAM DATE: 01/16/2018 12:52 PM EST AGE/SEX: 77 years / Male INDICATIONS: Chest pain. Tightness. CLINICAL DATA: This is the patient's initial encounter. Patient reports that signs and symptoms have been present for 1 day and indicates a pain score of 0/10. MEDICAL/SURGICAL HISTORY: . Cardiovascular disease. CABG. . COMPARISON: . FINDINGS: No infiltrate, effusion or pneumothorax demonstrated. No change right hemidiaphragm elevation. Mild cardiomegaly unchanged. Patient has had sternotomy and coronary artery bypass graft operation. CONCLUSION: No acute cardiopulmonary disease demonstrated. Electronically signed by: Jaziel Pennington MD 01/16/2018 1:03 PM EST
[2018-01-16 13:10] LABS: Creatine Kinase 45 U/L (39-308)
--- NOTE | 2018-01-16 13:38 | US ---
EXAM DATE: 01/16/2018 1:35 PM EST AGE/SEX: 77 years / Male INDICATIONS: Left lower extremity pain. CLINICAL DATA: This is the patient's initial encounter. Patient reports that signs and symptoms have been present for 4 - 6 days and indicates a pain score of 3/10. MEDICAL/SURGICAL HISTORY: . Myocardial infarction. Chronic obstructive pulmonary disease. For ismael smoker. . Cardiac stents. Fusion of cervical spine. Coronary artery bypass graft 08/2017. COMPARISON: No prior exams available for comparison. TECHNIQUE: Venous ultrasound of both lower extremities was performed from the inguinal ligament to t he proximal calf. Real-time, color Doppler and spectral tracing, compression and augmentation techni ques were used. FINDINGS: Normal compression of the deep venous system from the inguinal region to the proximal calf . No echogenic clot is seen. Normal response of the venous system to augmentation and respiration. CONCLUSION: No venous thrombosis of the left lower extremity. Electronically signed by: Jaziel Pennington MD 01/16/2018 1:37 PM EST
--- NOTE | 2018-01-16 14:16 | ECG ---
Date Performed: 01/16/2018 Time Performed: 12:12:54 PTAGE: 77 years EKG: SINUS BRADYCARDIA POSSIBLE RIGHT VENTRICULAR CONDUCTION DELAY INFERIOR MYOCARDIAL INFARCTIO N ABNORMAL ECG Compared to prior electrocardiogram, Premature ventricular contractions are now presen t . PREVIOUS TRACING : 02/22/2017 04.49 DOCTOR: Ian Mcgregor Interpretating Date/Time 01/16/2018 14:15:49
--- NOTE | 2018-01-16 15:45 | MB ---
cc: Joaquín Henderson MD DATE: 01/16/2018 REASON FOR CONSULTATION: Possible unstable angina. HISTORY OF PRESENT ILLNESS: The patient is a 77-year-old white male with a history of COPD, coronary artery disease, hypertension, hyperlipidemia, who was in his usual state of health up until this morning when while at the [facility], he began to experience bilateral neck tightness, which is his usual angina equivalent. There was no associated shortness of breath, nausea or diaphoresis. He did try taking 2 sublingual nitroglycerin with eventual relief of his symptoms after about 30-40 minutes. He reports no other episodes of angina since his 2-vessel bypass surgery a few months ago in [place]. This morning, he did feel moderately lightheaded. Emergency services found him to be hypotensive with a systolic pressure in the 70s and a heart rate in the 40s. He has since hemodynamically stabilized without any specific therapy. He also denies pedal edema, paroxysmal nocturnal dyspnea, fevers. PAST MEDICAL HISTORY: 1. COPD. 2. Coronary artery disease, status post stent of the right coronary in 2009, status post 1 or 2 more stents in 2011. He also sustained a non-ST elevation myocardial infarction in 12/2014 with a cardiac catheterization by Dr. Castro on 12/25/2014 showing normal left main, 50% distal LAD stenosis, 60% proximal obtuse marginal lesion, 60% distal right coronary, mild stent restenosis in the proximal to mid right coronary. The patient reports he underwent 2-vessel bypass surgery earlier this year in [place]. He was to have a third graft, but they apparently were unable to place it due to the anatomical location of the target vessel. 3. Hypertension. 4. Hyperlipidemia. CARDIAC MEDICATIONS AT HOME: 1. Crestor 10 mg daily. 2. Losartan 50 mg daily. 3. Isosorbide mononitrate 30 mg daily. 4. Hydralazine 25 mg b.i.d. 5. Apixaban 5 mg b.i.d. ALLERGIES: PENICILLIN. FAMILY HISTORY: Noncontributory. SOCIAL HISTORY: The patient is a former smoker. He drinks occasional alcohol. REVIEW OF SYSTEMS: As in the history of present illness, otherwise negative or noncontributory. He also denies headache, abdominal pain, melena, dyspepsia, bright red blood per rectum. PHYSICAL EXAMINATION: VITAL SIGNS: His blood pressure is 177/77 with a pulse of 59, respirations 18. GENERAL: He is a well-developed, well-nourished white male in no acute distress. NECK: Jugular venous pressure is normal. Carotid pulses are 2+ bilaterally and without bruits. CHEST: Reveals clear lungs pena. CARDIAC: He has a bradycardic, regular rhythm without S3, S4 or murmur. ABDOMEN: He has a soft, nontender abdomen. Bowel sounds are present. There is no definite hepatosplenomegaly. EXTREMITIES: Reveal no clubbing, cyanosis or edema. Peripheral pulses are normal throughout. DIAGNOSTIC DATA: EKG shows sinus bradycardia, inferior T-wave inversion, consider ischemia, no change from February 2017. Chest x-ray shows no acute disease. LABORATORY DATA: Includes WBC 7.0, hemoglobin 12.5, platelets 144. INR 1.1. Potassium 4.9, BUN 24, creatinine 1.46. Troponin less than 0.02. CK 45. IMPRESSION: Possible recurrent angina (neck tightness, which is his usual anginal equivalent) in a 77-year-old white male with history of coronary artery disease, status post a number percutaneous coronary interventions, status post 2-vessel bypass surgery a few months ago, hypertension, hyperlipidemia. At this time, he is asymptomatic. Electrocardiogram shows no changes from electrocardiogram 11 months ago. Initial cardiac enzymes are negative for myocardial infarction. The patient does report that his cardiac surgeon initially wanted to place 3 bypass grafts at the time of his surgery, but was unable to place the third due to the anatomical location of the target vessel. It is unclear whether the patient has a history of atrial fibrillation. He is on apixaban, but he cannot recall being on this drug or the indication. RECOMMENDATIONS: 1. Continue to check serial cardiac enzymes. 2. Will consider discharge home with close followup with his service writer versus performing a cardiac catheterization here at [place]. 3. Continue his usual home cardiac medications except for apixaban. Avoid beta chris therapy given his bradycardia. MD ARELIS Ross/sergio , 03:05 PM , 03:15 PM [facility]
[2018-01-16] MEDS ORDERED: Morphine Inj 4 MG/ML Vial IV.PUSH PRN ×2 (16:24)
--- NOTE | 2018-01-16 16:25 | P.HPIM ---
History of Present Illness Primary Care Physician: Arnulfo Chicas History of Present Illness: Mr. Samuel is a 77-year-old male. He has a past history of coronary artery disease. He has had angina in the past and reports that today he had a similar angina episode which includes neck tightness and headache. This occurred while he was seated at a [id number] shop. No induction from exertion. He was transferred here by EMS. When EMS arrived they noted that he had bradycardia in the 40s and hypotension with systolic blood pressure in the 70s. Atropine was given. Patient subsequently improved in regards to heart rate and pressures. The patient's also had resolution of his chest pain. He has a history of bypass surgery but reports that 2 out of 3 lesions were corrected and the third lesion was not corrected due to a difficult position of the lesion and associated risks. No complaints of chest pain while in the ER, when I visited him. No other complaints. Inpatient Certification: I certify that the inpatient services were ordered in accordance with Medicare regulations governing the order. This includes certification that hospital inpatient services are reasonable and necessary and in the case of services not specified as inpatient-only under 42 CFR 419.22(n), that they are appropriately provided as inpatient services in accordance to with the 2-midnight benchmark under 43 CFR 412.3(e) Estimated Total Length of Stay (Days): 3 Plans for Post Hospital Care: Home Review of Systems Constitutional: No fevers, no chills no night sweats, no fatigue, no weakness Eyes: No eye pain, no blurry vision, no loss of vision ENT: No sore throat, no ear pain, no rhinorrhea Cardiovascular: Angina, neck tightness, headache, no tachycardia, no palpitations, no shortness of breath, no syncope Respiratory: No wheezing, no cough, no shortness of breath Gastrointestinal: No abdominal pain, no black tarry stools, no bright red blood per rectum, no vomiting, no diarrhea Musculoskeletal: No joint pain, no muscle cramps, no stiffness Integumentary: No rash, no ulcers, no drainage Neurologic: No sensory loss, no loss of motor function, no dizziness Psychiatric: No behavioral changes, no hallucinations, no suicidal ideations PMFSH - History History Provided By: Patient - Medical History Medical History: Medical History (Last Reviewed 01/16/18 @ 12:34 by Miranda Coleman MD) Myocardial infarction - Surgical History Surgical History: Surgical History (Last Reviewed 01/16/18 @ 12:34 by Miranda Coleman MD) History of cardiac cath History of fusion of cervical spine History of open heart surgery - Family History Family History: Family History (Last Updated 01/16/18 @ 16:21 by Emery Han MD) Other Osteoarthritis - Tobacco History Second Hand Smoke Exposure: Yes Tobacco Use In Past 30 Days: Yes Smoking Status: Former smoker Tobacco Type: Cigarettes - Alcohol History How Often Do You Have a Drink Containing Alcohol: 2 to 4 times a month - Substance Use History Substance History: No History of Abuse - Travel History Recent Travel in the [place] Within the Last 8 Weeks: No Recent Travel Out of the Country Within the Last 8 Weeks: No - Immunization History Tetanus Immunization: Unsure Medications and Allergies Active Medications: Active Medications Al Hydroxide/Mg Hydroxide (Milk Of Benito Mack) 30 ml PO Q12H PRN PRN Reason: Mild Constipation Aspirin (Ecotrin) 81 mg PO DAILY DAVID Isosorbide Mononitrate (Imdur) 60 mg PO DAILY@0700 DAVID Losartan Potassium (Cozaar) 50 mg PO DAILY DAVID Ondansetron HCl (Zofran Inj) 4 mg IV.PUSH Q6H PRN PRN Reason: NAUSEA OR VOMITING Sodium Chloride (Ns Flush) 2 ml IV.FLUSH UNSCH PRN PRN Reason: FLUSH AFTER USING IV ACCESS Allergies Allergy/AdvReac Type Severity Reaction Status Date / Time penicillin G Allergy Unknown Anaphylaxis Unverified 10/28/17 18:05 Home Medications Medication Instructions Recorded Confirmed Type apixaban [Eliquis] 5 mg PO BID 10/28/17 10/28/17 History hydralazine 25 mg PO BID 10/28/17 10/28/17 History isosorbide mononitrate 30 mg PO DAILY 10/28/17 10/28/17 History losartan 50 mg PO DAILY 10/28/17 10/28/17 History ranitidine HCl 150 mg PO BID 10/28/17 10/28/17 History rosuvastatin [Crestor] 10 mg PO DAILY 10/28/17 10/28/17 History Exam Vital signs: Vital Signs 01/16/18 12:13 01/16/18 13:06 01/16/18 14:09 Pulse Rate 51 L 65 59 L Respiratory Rate 18 18 18 Blood Pressure 132/58 L 162/77 H 177/77 H Pulse Oximetry 96 98 99 Intake & Output 01/15/18 01/16/18 01/16/18 18:59 06:59 18:59 Weight 100.698 kg Narrative: GENERAL: NAD, A&Ox3 HEAD: Normocephalic. NECK: Supple, trachea midline. No lymphadenopathy. EYES: No scleral icterus. No injection or drainage. CARDIOVASCULAR: Regular rate and rhythm without murmurs, gallops, or rubs. RESPIRATORY: Breath sounds equal bilaterally. No accessory muscle use. GASTROINTESTINAL: Abdomen soft, non-tender, nondistended. MUSCULOSKELETAL: No cyanosis, or edema. SKIN: Warm and dry. NEURO: No focal neurological deficits. Results - Labs CBC & Chem 7: 01/16/18 12:23 01/16/18 12:23 Labs: Short CBC 01/16/18 Range/Units 12:23 WBC 7.0 (4.0-11.0) th/mm3 Hgb 12.5 L (13.0-17.0) gm/dL Hct 39.3 (39.0-51.0) % Plt Count 144 L (150-450) th/mm3 BMP 01/16/18 12:23 Sodium 142 Potassium 4.9 Chloride 110 H Carbon Dioxide 24.0 BUN 24 H Creatinine 1.46 H Calcium 9.1 Cardiac Enzymes 01/16/18 Range/Units 12:23 Total Creatine Kinase 45 (39-308) U/L Troponin I Less than 0.02 L (0.02-0.05) ng/mL Liver Function 01/16/18 Range/Units 12:23 Total Bilirubin 0.6 (0.2-1.0) mg/dL AST 13 L (15-37) U/L ALT 17 (12-78) U/L Alkaline Phosphatase 32 L (45-117) U/L Albumin 3.6 (3.4-5.0) g/dL - Imaging Impressions Chest X-Ray 01/16/18 12:14 CONCLUSION: No acute cardiopulmonary disease demonstrated. Venous Doppler Study 01/16/18 13:04 CONCLUSION: No venous thrombosis of the left lower extremity. Caprini VTE Risk Assessment Caprini VTE Risk Assessment: Moderate/High Risk (score >= 2) Caprini Risk Assessment Model: Point Value = 1 Point Value = 2 Point Value = 3 Point Value = 5 Age 41-60 Minor surgery BMI > 25 kg/m2 Swollen legs Varicose veins or History of unexplained or recurrent spontaneous Oral contraceptives or hormone replacement Sepsis (< 1 month) Serious lung disease, including pneumonia (< 1 month) Abnormal pulmonary function Acute myocardial infarction Congestive heart failure (< 1 month) History of inflammatory bowel disease Medical patient at bed rest Age 61-74 Arthroscopic surgery Major open surgery (> 45 min) Laparoscopic surgery (> 45 min) Malignancy Confined to bed (> 72 hours) Immobilizing plaster cast Central venous access Age >= 75 History of VTE Family history of VTE Factor V Leiden Prothrombin [id number] Lupus anticoagulant Anticardiolipin antibodies Elevated serum homocysteine Heparin-induced thrombocytopenia Other congenital or acquired thrombophilia Stroke (< 1 month) Elective arthroplasty Hip, pelvis, or leg fracture Acute spinal cord injury (< 1 month) Prophylaxis Regimen: Total Risk Factor Score Risk Level Prophylaxis Regimen 0-1 Low Early ambulation 2 Moderate Order ONE of the following: *Sequential Compression Device (SCD) *Heparin 5000 units SQ BID 3-4 Higher Order ONE of the following medications: *Heparin 5000 units SQ TID *Enoxaparin/Lovenox 40 mg SQ daily (WT < 150 kg, CrCl > 30 mL/min) *Enoxaparin/Lovenox 30 mg SQ daily (WT < 150 kg, CrCl > 10-29 mL/min) *Enoxaparin/Lovenox 30 mg SQ BID (WT < 150 kg, CrCl > 30 mL/min) AND/OR *Sequential Compression Device (SCD) 5 or more Highest Order ONE of the following medications: *Heparin 5000 units SQ TID (Preferred with Epidurals) *Enoxaparin/Lovenox 40 mg SQ daily (WT < 150 kg, CrCl > 30 mL/min) *Enoxaparin/Lovenox 30 mg SQ daily (WT < 150 kg, CrCl > 10-29 mL/min) *Enoxaparin/Lovenox 30 mg SQ BID (WT < 150 kg, CrCl > 30 mL/min) AND *Sequential Compression Device (SCD) Assessment and Plan - Plan 77-year-old male admitted secondary to unstable angina Unstable angina History of CABG History of cardiac cath Evaluate for ACS Follow cardiac enzymes Aspirin daily planned, hold for any procedure. When necessary oxygen When necessary morphine for pain. When necessary nitroglycerin Follow on telemetry Cardiology consult Davon on hold History of cervical spine fusion Follow clinically No acute pain of the posterior neck DVT prophylaxis Patient on Eliquis at baseline
[2018-01-16] MEDS ORDERED: Docusate Sodium 100 MG Capsule PO PRN (16:26)
[2018-01-16 18:40] LABS: Creatine Kinase 40 U/L (39-308)
[2018-01-16] MEDS: hydrALAZINE 25 MG Tablet PO SCH (21:01)
[2018-01-16] MEDS: Famotidine 20 MG Tablet PO SCH (21:01)
[2018-01-16] MEDS: amLODIPine 10 MG Tablet PO SCH (21:47)
[2018-01-17] MEDS ORDERED: Isosorbide Mononitrate 60 MG ER 24HR Tablet (Imdur) PO SCH (07:00)
--- NOTE | 2018-01-17 07:13 | ECG ---
Date Performed: 01/16/2018 Time Performed: 18:17:16 PTAGE: 77 years EKG: Sinus bradycardia. Left axis deviation rSr'(V1) - probable normal variant Inferior infarct - age undetermined Abnormal ECG No significant change from prior electrocardiogram. DOCTOR: Ian Mcgregor Interpretating Date/Time 01/17/2018 07:11:31
[2018-01-17] MEDS ORDERED: Isosorbide Mononitrate 30 MG ER 24HR Tablet (Imdur) PO SCH (09:00)
[2018-01-17 09:11] LABS: Chol/HDL Ratio 3.66 Ratio; HDL Cholesterol 31.4 mg/dL (40.0-60.0)
[2018-01-17] MEDS: amLODIPine 10 MG Tablet PO SCH (09:15)
[2018-01-17] MEDS: hydrALAZINE 25 MG Tablet PO SCH (09:15)
[2018-01-17] MEDS: Famotidine 20 MG Tablet PO SCH (09:15)
--- NOTE | 2018-01-17 10:21 | ECG ---
Date Performed: 01/17/2018 Time Performed: 00:29:30 PTAGE: 77 years EKG: Sinus bradycardia Left axis deviation rSr'(V1) - probable normal variant Inferior infarct - age undetermined Abnormal ECG No significant change from prior electrocardiogram. PREVIOUS TRACING : 01/16/2018 18.17 DOCTOR: Ian Mcgregor Interpretating Date/Time 01/17/2018 10:19:43
--- NOTE | 2018-01-17 10:35 | ECHRPT ---
Indication: CONCLUSIONS The left ventricular systolic function is normal with an estimated ejection fraction in the range of 55-60%. Normal left ventricular size. Mild concentric left ventricular hypertrophy. No regional wall motion abnormalities are present. Mild thickening of the mitral valve leaflets. Trace mitral valve regurgitation. Aortic valve sclerosis is present. Mild thickening of the tricuspid valve leaflets. There is trace tricuspid valve regurgitation. The estimated pulmonary arterial pressure is 33 mmHg. The inferior vena cava was not well visualized. BP: / HR: Rhythm: MEASUREMENTS (Male / Female) Normal Values Technical Quality:Poor 2D ECHO LV Diastolic Diameter PLAX 4.7 cm 4.2 - 5.9 / 3.9 - 5.3 cm LV Systolic Diameter PLAX 3.5 cm IVS Diastolic Thickness 1.4 cm 0.6 - 1.0 / 0.6 - 0.9 cm LVPW Diastolic Thickness 1.4 cm 0.6 - 1.0 / 0.6 - 0.9 cm LV Relative Wall Thickness 0.6 LVOT Diameter 1.6 cm LA Systolic Diameter LX 4.0 cm 3.0 - 4.0 / 2.7 - 3.8 cm LV Ejection Fraction MOD 4C 66.7 % LV Ejection Fraction 4C AL 64.3 % M-MODE Aortic Root Diameter MM 2.6 cm LA Systolic Diameter MM 3.8 cm LA Ao Ratio MM 1.5 AV Cusp Separation MM 2.1 cm DOPPLER AV Peak Velocity 155.0 cm/s AV Peak Gradient 9.6 mmHg LVOT Peak Velocity 129.0 cm/s LVOT Peak Gradient 6.7 mmHg AV Area Cont Eq pk 1.7 cm MV Area PHT 2.2 cm Mitral E Point Velocity 75.0 cm/s Mitral A Point Velocity 79.5 cm/s Mitral E to A Ratio 0.9 TR Peak Velocity 240.0 cm/s TR Peak Gradient 23.0 mmHg Right Atrial Pressure 10.0 mmHg Pulmonary Artery Systolic Pressu 33.0 mmHg Right Ventricular Systolic Press 33.0 mmHg PV Peak Velocity 110.0 cm/s PV Peak Gradient 4.8 mmHg FINDINGS LEFT VENTRICLE The left ventricular systolic function is normal with an estimated ejection fraction in the range of 55-60%. Normal left ventricular size. Mild concentric left ventricular hypertrophy. No regional wall motion abnormalities are present. RIGHT VENTRICLE Normal right ventricular size and systolic function. LEFT ATRIUM The left atrial size is normal. RIGHT ATRIUM The right atrial size is normal. ATRIAL SEPTUM Normal atrial septal thickness without atrial level shunting by limited color doppler interrogation. AORTA The aortic root and proximal ascending aorta are normal in size on limited imaging. MITRAL VALVE Mild thickening of the mitral valve leaflets. Trace mitral valve regurgitation. AORTIC VALVE Trileaflet aortic valve. Aortic valve sclerosis is present. TRICUSPID VALVE Mild thickening of the tricuspid valve leaflets. There is trace tricuspid valve regurgitation. The estimated pulmonary arterial pressure is 33 mmHg. PULMONARY VALVE No pulmonary valve regurgitation or stenosis. VESSELS The inferior vena cava was not well visualized. PERICARDIUM No pericardial effusion. Ezio Day MD, FACC (Electronically Signed) Final Date:17 January 2018 10:34
--- NOTE | 2018-01-17 11:04 | P.PNIM ---
Subjective Interval history: No episodes of chest pain overnight. Thus far troponin levels have remained flat and at normal limits. No shortness of breath, neck tightness, or neck pain reported. Physical Exam Vital signs: Vital Signs 01/16/18 12:13 01/16/18 13:06 01/16/18 14:09 Temperature Pulse Rate 51 L 65 59 L Respiratory Rate 18 18 18 Blood Pressure 132/58 L 162/77 H 177/77 H Pulse Oximetry 96 98 99 01/16/18 16:39 01/16/18 17:59 01/16/18 18:00 Temperature 98.1 F Pulse Rate 57 L 51 L 56 L Respiratory Rate 18 18 Blood Pressure 176/78 H 167/85 H Pulse Oximetry 96 98 01/16/18 19:00 01/16/18 20:00 01/16/18 21:00 Temperature 98.0 F Pulse Rate 57 L 62 58 L Respiratory Rate 18 Blood Pressure 147/67 H Pulse Oximetry 95 01/16/18 22:00 01/16/18 23:00 01/16/18 23:39 Temperature 98.0 F Pulse Rate 62 57 L 57 L Respiratory Rate 18 Blood Pressure 154/76 H Pulse Oximetry 96 01/17/18 00:00 01/17/18 01:00 01/17/18 02:00 Temperature Pulse Rate 54 L 57 L 64 Respiratory Rate Blood Pressure Pulse Oximetry 01/17/18 03:00 01/17/18 04:00 01/17/18 05:00 Temperature 98.3 F Pulse Rate 64 64 64 Respiratory Rate 18 Blood Pressure 146/60 H Pulse Oximetry 94 L 01/17/18 06:00 01/17/18 07:00 01/17/18 08:00 Temperature 97.4 F L Pulse Rate 80 65 64 Respiratory Rate 18 Blood Pressure 132/67 Pulse Oximetry 94 L 01/17/18 09:29 Temperature Pulse Rate Respiratory Rate Blood Pressure Pulse Oximetry 96 Intake & Output 01/16/18 01/17/18 01/17/18 18:59 06:59 18:59 Intake Total 240 / 240 Output Total 1050 / 1050 Balance -810 / -810 Weight 100.698 kg 120.7 kg Intake: Oral 240 / 240 Output: Urine 1050 / 1050 Narrative: GENERAL: NAD, A&Ox3 HEAD: Normocephalic. NECK: Supple, trachea midline. No lymphadenopathy. EYES: No scleral icterus. No injection or drainage. CARDIOVASCULAR: Regular rate and rhythm without murmurs, gallops, or rubs. RESPIRATORY: Breath sounds equal bilaterally. No accessory muscle use. GASTROINTESTINAL: Abdomen soft, non-tender, nondistended. MUSCULOSKELETAL: No cyanosis, or edema. SKIN: Warm and dry. NEURO: No focal neurological deficits. Results - Labs CBC & Chem 7: 01/16/18 12:23 01/16/18 12:23 Laboratory Results - last 24 hr 01/16/18 01/16/18 01/16/18 12:23 12:23 12:23 WBC 7.0 RBC 4.67 Hgb 12.5 L Hct 39.3 MCV 84.3 MCH 26.9 L MCHC 31.9 L RDW 19.1 H Plt Count 144 L MPV 9.1 Neut % (Auto) 59.2 Lymph % (Auto) 27.1 [place] % (Auto) 8.1 H Eos % (Auto) 4.6 H Baso % (Auto) 1.0 Neut # (Auto) 4.2 Lymph # (Auto) 1.9 [place] # (Auto) 0.6 Eos # (Auto) 0.3 Baso # (Auto) 0.1 WBC Differential . Differential Comment Auto diff final PT 11.0 INR 1.1 APTT 22.2 L Sodium 142 Potassium 4.9 Chloride 110 H Carbon Dioxide 24.0 Anion Gap 8 BUN 24 H Creatinine 1.46 H Estimated GFR 47 L Random Glucose 121 H Calcium 9.1 Magnesium 1.8 Total Bilirubin 0.6 AST 13 L ALT 17 Alkaline Phosphatase 32 L Total Creatine Kinase 45 Troponin I Less than 0.02 L B-Natriuretic Peptide Total Protein 6.6 Albumin 3.6 Triglycerides Cholesterol LDL Cholesterol, Calc HDL Cholesterol Cholesterol/HDL Ratio 01/16/18 01/16/18 01/17/18 12:23 18:12 07:45 WBC RBC Hgb Hct MCV MCH MCHC RDW Plt Count MPV Neut % (Auto) Lymph % (Auto) [place] % (Auto) Eos % (Auto) Baso % (Auto) Neut # (Auto) Lymph # (Auto) [place] # (Auto) Eos # (Auto) Baso # (Auto) WBC Differential Differential Comment PT INR APTT Sodium Potassium Chloride Carbon Dioxide Anion Gap BUN Creatinine Estimated GFR Random Glucose Calcium Magnesium Total Bilirubin AST ALT Alkaline Phosphatase Total Creatine Kinase 40 Troponin I Less than 0.02 L B-Natriuretic Peptide 127 H Total Protein Albumin Triglycerides 154 H Cholesterol 115 L LDL Cholesterol, Calc 53 HDL Cholesterol 31.4 L Cholesterol/HDL Ratio 3.66 - Imaging Impressions Chest X-Ray 01/16/18 12:14 CONCLUSION: No acute cardiopulmonary disease demonstrated. Venous Doppler Study 01/16/18 13:04 CONCLUSION: No venous thrombosis of the left lower extremity. Assessment and Plan - Plan 77-year-old male admitted secondary to unstable angina Negative ACS workup thus far. Cardiology following. Physical therapy will be initiated. Unstable angina History of CABG History of cardiac cath Negative findings on ACS workup Flat trend without elevation in cardiac enzymes When necessary morphine for pain. When necessary nitroglycerin Follow on telemetry Cardiology following Eliquis on hold History of cervical spine fusion Follow clinically No acute pain of the posterior neck DVT prophylaxis Patient on Eliquis at baseline
--- NOTE | 2018-01-17 11:45 | P.PNCA ---
Subjective Interval history: No further neck tightness. No dyspnea, dizziness, palpitations. Slept fairly well. Medications and Allergies Active Medications: Active Medications Al Hydroxide/Mg Hydroxide (Milk Of Benito Mack) 30 ml PO Q12H PRN PRN Reason: Mild Constipation Amlodipine Besylate (Norvasc) 10 mg PO DAILY [facility] Last Admin: 01/17/18 09:15 Dose: 10 mg Aspirin (Ecotrin) 81 mg PO DAILY [facility] Last Admin: 01/17/18 09:15 Dose: 81 mg Atorvastatin Calcium (Lipitor) 10 mg PO HS [facility] Last Admin: 01/16/18 21:01 Dose: 10 mg Docusate Sodium (Colace) 100 mg PO DAILY PRN PRN Reason: constipation Enalaprilat (Vasotec Inj) 1.25 mg IV.PUSH Q6H PRN PRN Reason: SBP>160, DBP>90 Famotidine (Pepcid) 10 mg PO BID [facility] Hydralazine HCl (Apresoline) 25 mg PO BID [facility] Last Admin: 01/17/18 09:15 Dose: 25 mg Isosorbide Mononitrate (Imdur) 60 mg PO DAILY@0700 [facility] Last Admin: 01/17/18 06:12 Dose: 60 mg Losartan Potassium (Cozaar) 50 mg PO DAILY [facility] Last Admin: 01/17/18 09:16 Dose: Not Given Miscellaneous (Pill Splitter) 1 each OTHER UNSCH [facility] Morphine Sulfate (Morphine Inj) 4 mg IV.PUSH Q4H PRN PRN Reason: Pain 7 to 10 Morphine Sulfate (Morphine Inj) 2 mg IV.PUSH Q4H PRN PRN Reason: Pain 3 to 6 Nitroglycerin (Nitrostat Sl) 0.4 mg SL Q5M PRN PRN Reason: CHEST PAIN Ondansetron HCl (Zofran Inj) 4 mg IV.PUSH Q6H PRN PRN Reason: NAUSEA OR VOMITING Sodium Chloride (Ns Flush) 2 ml IV.FLUSH UNSCH PRN PRN Reason: FLUSH AFTER USING IV ACCESS Allergies Allergy/AdvReac Type Severity Reaction Status Date / Time penicillin G Allergy Unknown Anaphylaxis Unverified 10/28/17 18:05 Home Medications Medication Instructions Recorded Confirmed Type apixaban [Eliquis] 5 mg PO BID 10/28/17 01/16/18 History hydralazine 25 mg PO BID 10/28/17 01/16/18 History isosorbide mononitrate 30 mg PO DAILY 10/28/17 10/28/17 History losartan 50 mg PO DAILY 10/28/17 01/16/18 History ranitidine HCl 150 mg PO BID 10/28/17 01/16/18 History rosuvastatin [Crestor] 10 mg PO DAILY 10/28/17 01/16/18 History aspirin 81 mg PO DAILY 01/16/18 01/16/18 History escitalopram oxalate 20 mg PO DAILY 01/16/18 01/16/18 History fenofibrate nanocrystallized 145 mg PO DAILY 01/16/18 01/16/18 History Physical Exam Vital signs: Vital Signs 01/16/18 12:13 01/16/18 13:06 01/16/18 14:09 Temperature Pulse Rate 51 L 65 59 L Respiratory Rate 18 18 18 Blood Pressure 132/58 L 162/77 H 177/77 H Pulse Oximetry 96 98 99 01/16/18 16:39 01/16/18 17:59 01/16/18 18:00 Temperature 98.1 F Pulse Rate 57 L 51 L 56 L Respiratory Rate 18 18 Blood Pressure 176/78 H 167/85 H Pulse Oximetry 96 98 01/16/18 19:00 01/16/18 20:00 01/16/18 21:00 Temperature 98.0 F Pulse Rate 57 L 62 58 L Respiratory Rate 18 Blood Pressure 147/67 H Pulse Oximetry 95 01/16/18 22:00 01/16/18 23:00 01/16/18 23:39 Temperature 98.0 F Pulse Rate 62 57 L 57 L Respiratory Rate 18 Blood Pressure 154/76 H Pulse Oximetry 96 01/17/18 00:00 01/17/18 01:00 01/17/18 02:00 Temperature Pulse Rate 54 L 57 L 64 Respiratory Rate Blood Pressure Pulse Oximetry 01/17/18 03:00 01/17/18 04:00 01/17/18 05:00 Temperature 98.3 F Pulse Rate 64 64 64 Respiratory Rate 18 Blood Pressure 146/60 H Pulse Oximetry 94 L 01/17/18 06:00 01/17/18 07:00 01/17/18 08:00 Temperature 97.4 F L Pulse Rate 80 65 64 Respiratory Rate 18 Blood Pressure 132/67 Pulse Oximetry 94 L 01/17/18 09:29 Temperature Pulse Rate Respiratory Rate Blood Pressure Pulse Oximetry 96 Intake & Output 01/16/18 01/17/18 01/17/18 18:59 06:59 18:59 Intake Total 240 / 240 Output Total 1050 / 1050 Balance -810 / -810 Weight 100.698 kg 120.7 kg Intake: Oral 240 / 240 Output: Urine 1050 / 1050 - Constitutional no acute distress - Routine Neck Exam Absent: JVD - Routine Respiratory Exam Present: CTA bilaterally - Routine Cardiovascular Exam Present: RRR, S1, S2, murmur. Absent: gallop Comments: II/ diffuse systolic murmur. Normal S2. - Routine Abdominal Exam Present: soft, normoactive bowel sounds. Absent: tenderness, organomegaly - Routine Extremities Exam Absent: cyanosis, clubbing, edema Results 01/16/18 12:23 01/16/18 12:23 Cardiac Enzymes 01/16/18 01/16/18 01/16/18 Range/Units 12:23 12:23 18:12 AST 13 L (15-37) U/L Troponin I Less than 0.02 L Less than 0.02 L (0.02-0.05) ng/mL B-Natriuretic Peptide 127 H (0-100) pg/mL Coagulation 01/16/18 01/16/18 Range/Units 12:23 12:23 PT 11.0 (9.8-11.6) sec APTT 22.2 L (23.4-31.7) sec B-Natriuretic Peptide 127 H (0-100) pg/mL Lipids 01/17/18 Range/Units 07:45 Triglycerides 154 H (42-150) mg/dL Cholesterol 115 L (120-200) mg/dL HDL Cholesterol 31.4 L (40.0-60.0) mg/dL Cholesterol/HDL Ratio 3.66 Ratio CBC 01/16/18 Range/Units 12:23 WBC 7.0 (4.0-11.0) th/mm3 RBC 4.67 (4.50-5.90) mil/mm3 Hgb 12.5 L (13.0-17.0) gm/dL Hct 39.3 (39.0-51.0) % Plt Count 144 L (150-450) th/mm3 Neut # (Auto) 4.2 (1.8-7.7) th/mm3 Lymph # (Auto) 1.9 (1.0-4.8) th/mm3 [place] # (Auto) 0.6 (0.0-0.9) th/mm3 Eos # (Auto) 0.3 (0.0-0.4) th/mm3 Baso # (Auto) 0.1 (0.0-0.2) th/mm3 Comprehensive Metabolic Panel 01/16/18 Range/Units 12:23 Sodium 142 (136-145) meq/L Potassium 4.9 (3.5-5.1) meq/L Chloride 110 H (98-107) meq/L Carbon Dioxide 24.0 (21.0-32.0) meq/L BUN 24 H (7-18) mg/dL Creatinine 1.46 H (0.60-1.30) mg/dL Calcium 9.1 (8.5-10.1) mg/dL AST 13 L (15-37) U/L ALT 17 (12-78) U/L Alkaline Phosphatase 32 L (45-117) U/L Total Protein 6.6 (6.4-8.2) g/dL Albumin 3.6 (3.4-5.0) g/dL Intake and Output 01/16/18 01/17/18 01/17/18 22:59 06:59 14:59 Intake Total 240 / 240 Output Total 1050 / 1050 Balance -810 / -810 Intake: Oral 240 / 240 Output: Urine 1050 / 1050 Other: Weight 120.7 kg - Imaging and Cardiology Imaging: Impressions Chest X-Ray 01/16/18 12:14 CONCLUSION: No acute cardiopulmonary disease demonstrated. Venous Doppler Study 01/16/18 13:04 CONCLUSION: No venous thrombosis of the left lower extremity. Assessment and Plan - Assessment (1) Coronary artery disease Code(s): I25.10 - Atherosclerotic heart disease of [place] coronary artery without angina pectoris Status: Acute Plan: Stable since admission. No further angina. Cardiac enzymes negative for CA. REC discharge home on higher dosing of isosorbide and the added amlodipine. No beta chris with his baseline low HR's. Recommend close f/u with his project buyer in [place] (if not possible as his project buyer is currently in [place], I've asked him to call our office for f/u). (2) Hypertension Code(s): I10 - Essential (primary) hypertension Status: Chronic Plan: Stable at present. Normotensive this morning. - Plan Code Status: full code Discussed Condition With: patient (1) Coronary artery disease Qualifiers: Coronary Disease-Associated Artery/Lesion type: [place] artery [place] vs. transplanted heart: [place] heart Associated angina: with unstable angina Qualified Code(s): I25.110 - Atherosclerotic heart disease of [place] coronary artery with unstable angina pectoris (2) Hypertension Qualifiers: Hypertension type: essential hypertension Qualified Code(s): I10 - Essential (primary) hypertension
[2018-01-17 12:27] VITALS: BP 132/55; TEMP 97.6; O2SAT 97
[2018-01-17 12:47] VITALS: PULSE 70
--- NOTE | 2018-01-17 13:16 | P.DS ---
Date of admission: 01/16/18 15:43 Primary care physician: Arnulfo Chicas Brief History from admission: Mr. Samuel is a 77-year-old male. He has a past history of coronary artery disease. He has had angina in the past and reports that today he had a similar angina episode which includes neck tightness and headache. This occurred while he was seated at a [employer] shop. No induction from exertion. He was transferred here by EMS. When EMS arrived they noted that he had bradycardia in the 40s and hypotension with systolic blood pressure in the 70s. Atropine was given. Patient subsequently improved in regards to heart rate and pressures. The patient's also had resolution of his chest pain. He has a history of bypass surgery but reports that 2 out of 3 lesions were corrected and the third lesion was not corrected due to a difficult position of the lesion and associated risks. No complaints of chest pain while in the ER, when I visited him. No other complaints. DS: Medications - Discharge Medications Prescriptions: amlodipine [Norvasc] 10 mg PO DAILY #30 tab isosorbide mononitrate 60 mg PO DAILY@0700 #30 tab DS: Summary Hospital Course: Mr. Samuel is a 77-year-old male. He has a past history of CABG x2. Third intended vessel for bypass is not a possible bypass. He was admitted secondary to neck tightness and pain which is an angina equivalent in him. When EMS arrived he had bradycardia and hypotension but this quickly resolved after a dose of atropine. By the time he arrived to the ER he has been chest pain- free. He is evaluated for cardiac etiology with an ACS workup. Negative findings in regards to cardiac enzymes. No findings on EKG. Cardiology has evaluated this patient and recommended increase isosorbide and amlodipine be added. Avoidance of beta-blockers recommended. Patient has an outpatient welfare interviewer he will follow-up with. Patient's been cleared by cardiology today and is medically clear for discharge home today. - Time Spent with Patient Total time spent providing and/or coordinating discharge services: Less than 30 minutes Exam Vital signs: Vital Signs 01/16/18 14:09 01/16/18 16:39 01/16/18 17:59 Temperature 98.1 F Pulse Rate 59 L 57 L 51 L Respiratory Rate 18 18 18 Blood Pressure 177/77 H 176/78 H 167/85 H Pulse Oximetry 99 96 98 01/16/18 18:00 01/16/18 19:00 01/16/18 20:00 Temperature 98.0 F Pulse Rate 56 L 57 L 62 Respiratory Rate 18 Blood Pressure 147/67 H Pulse Oximetry 95 01/16/18 21:00 01/16/18 22:00 01/16/18 23:00 Temperature Pulse Rate 58 L 62 57 L Respiratory Rate Blood Pressure Pulse Oximetry 01/16/18 23:39 01/17/18 00:00 01/17/18 01:00 Temperature 98.0 F Pulse Rate 57 L 54 L 57 L Respiratory Rate 18 Blood Pressure 154/76 H Pulse Oximetry 96 01/17/18 02:00 01/17/18 03:00 01/17/18 04:00 Temperature 98.3 F Pulse Rate 64 64 64 Respiratory Rate 18 Blood Pressure 146/60 H Pulse Oximetry 94 L 01/17/18 05:00 01/17/18 06:00 01/17/18 07:00 Temperature Pulse Rate 64 80 65 Respiratory Rate Blood Pressure Pulse Oximetry 01/17/18 08:00 01/17/18 09:00 01/17/18 09:29 Temperature 97.4 F L Pulse Rate 80 66 Respiratory Rate 18 Blood Pressure 132/67 Pulse Oximetry 94 L 96 01/17/18 10:00 01/17/18 12:00 Temperature 97.6 F Pulse Rate 60 70 Respiratory Rate 18 Blood Pressure 132/55 L Pulse Oximetry 97 Intake & Output 01/16/18 01/17/18 01/17/18 18:59 06:59 18:59 Intake Total 240 / 240 Output Total 1050 / 1050 Balance -810 / -810 Weight 100.698 kg 120.7 kg Intake: Oral 240 / 240 Output: Urine 1050 / 1050 Results Procedures completed during hospitalization: None Labs on day of discharge: Labs from last 24 hours 01/17/18 01/16/18 07:45 18:12 Total Creatine Kinase 40 Troponin I Less than 0.02 L Triglycerides 154 H Cholesterol 115 L LDL Cholesterol, Calc 53 HDL Cholesterol 31.4 L Cholesterol/HDL Ratio 3.66 - Impressions ITS Impressions Chest X-Ray 01/16/18 12:14 CONCLUSION: No acute cardiopulmonary disease demonstrated. Venous Doppler Study 01/16/18 13:04 CONCLUSION: No venous thrombosis of the left lower extremity. Discharge Plan - Discharge Disposition Patient Disposition: 01 Discharge Home - Discharge Condition Condition: Stable - Discharge Order Discharge Orders: Discharge Order (Routine); Ordered 01/17/18 Ordered By: Emery Han Cardiology Clear for Discharge (Routine); Ordered 01/17/18 Ordered By: Joaquín Henderson - Discharge Details Anticipated Discharge Date: 01/17/18 - Physicians Team Attending Provider: Emery Han Other Providers: Joaquín Henderson MD
[2018-01-17] MEDS ORDERED: Famotidine 20 MG Tablet PO SCH (21:00)
== END 2018-01-17 14:25 | disposition home or self-care (01) ==
LOC: NEPC 12:07 → NEDA 15:43 → HCIS 17:19
PROVIDERS: ADMIT Hospitalist; ATTEND Hospitalist